=== PATIENT | male | born 1950 | race Caucasian/White ===

== ENCOUNTER → 2024-01-14 | Outpatient (CLI) | payer MEDICARE ==
--- NOTE | 2024-01-20 14:06 | CT ---
EXAMINATION TYPE: CT chest wo con CT DLP: 1822 mGycm, Automated exposure control for dose reduction was used. DATE OF EXAM: 01/14/2024 8:57 AM COMPARISON: None. CLINICAL INDICATION:Male, 73 years old with history of J84.10 PULMONARY FIBROSIS, unspecified; PHH, h x of covid in October TECHNIQUE: Multiple axial images were obtained through the chest. Sagittal and coronal reformats were created for review. Prone position, inhalation and exhalation imaging performed per high-resolution algorithm Contrast used: mL of (None if empty) Oral contrast used: (None if empty) FINDINGS: LUNGS/ PLEURA: The lung parenchyma appears unremarkable. No significant fibrosis is identified. AIRWAY: Patent and unremarkable. HEART: Size within normal limits. Mild calcific atherosclerotic coronary artery disease. MEDIASTINUM: No gross evidence of adenopathy. VASCULATURE: No aortic aneurysm. MUSCULOSKELETAL: No acute osseous abnormalities SOFT TISSUES/LYMPH NODES: Unremarkable. LOWER NECK: No significant findings. UPPER ABDOMEN: No significant findings. IMPRESSION: No acute process detected. No significant pulmonary fibrosis is detected. Follow up recommendations for incidental pulmonary nodules, if there are any, are per [employer]ischarianne[employer] or [employer] [email or web address]. [email or web address]://[email or web address].[email or web address]/[email or web address]
== END | disposition home or self-care (01) ==
LOC: RADCTMAIN 08:20
PROVIDERS: ATTEND Internal Medicine Critical Care Medicine
DX: J84.10 Pulmonary fibrosis, unspecified (principal)
CPT/HCPCS: 71250